=== PATIENT | female | born 1990 | race Caucasian/White ===

== ENCOUNTER 2025-06-29 11:19 | Outpatient (POV) | payer MEDICAID, SELFPAY ==
--- OUTSIDE RECORDS SUMMARY | 2025-03-14 09:45 | XMS_ITS ---
Author Organization [facility] [place] Address [facility] [place] [address] Care Team Providers Care Metaphysician Name Role Phone NBA EDEN Unavailable [phone] Chloé Martin Unavailable [phone] REASON FOR VISIT F/U Encounters Encounter Location Date Provider Diagnosis [facility] [place] [address] 03/14/2025 Chloé Martin Plan Of Treatment No Information Progress Notes * MCDOWELLGUILLERMO CuevasOB:1990 ([age] yo F)Acc No.[id number]:03/14/2025 Progress Notes Patient: ERROL ATKINS Appointment Provider: Jimmy Martin APRN, CNP :1990 A ge:34 Y S ex:Female Date:03/14/2025 Address:[address] [facility] Subjective: * Chief Complaints: * 1 . F/U. * Medical History: Objective: * Vitals: Assessment: Plan: * Treatment: * * Electronic signature of Gerry Giron APRN on 06/29/2025 at 11:25 AM EDT Sign off status: Pending * Appointment Provider: Jimmy Martin APRN, CNP Date: 03/14/2025 Generated for Printing/Faxing/eTransmitting on: 06/29/2025 11:25 AM EDT
--- OUTSIDE RECORDS SUMMARY | 2025-04-20 03:45 | XMS_ITS ---
Author Organization [facility] [place] Address [address] [place] [address] Care Team Providers Care Avionics Technician Name Role Phone TREVER EDENDahliaPEPITOJOSE F Unavailable [phone] Rupesh Parra Unavailable [phone] REASON FOR VISIT 5 WEEK Encounters Encounter Location Date Provider Diagnosis [facility] [place] [address] [place] [address] 04/20/2025 Rupesh Parra Plan Of Treatment No Information Progress Notes * GUILLERMO MCDOWELLOB:1990 ([age] yo F)Acc No.[id number]:04/20/2025 Patient: ERROL ATKINS Provider: DEEPAK Mendoza :1990 A ge:34 Y S ex:Female Date:04/20/2025 Address:[address] [facility] Subjective: * Chief Complaints: * 1 . 5 WEEK. * Medical History: Objective: * Vitals: Assessment: Plan: * Treatment: * * Electronic signature of FRANNIE Wright on 06/29/2025 at 11:25 AM EDT Sign off status: Pending * Provider: DEEPAK Mendoza Date: 04/20/2025 Generated for Josh ng/Fatuckerg/eTransmitting on: 0 06/29/2025 11:25 AM EDT
--- OUTSIDE RECORDS SUMMARY | 2025-06-29 11:25 | XMS_ITS | Encounter Summary ---
Author Organization Healthcare Address [address] [place] [address] Care Team Providers Care Air Sampler Name Role Phone Jeff Pagan MD Unavailable Pcp, No Primary Care Provider Unavailabl e Reason for Referral * Consultation (Routine) - Closed Specialty Diagnoses / Procedures Referred By Contac t Referred To Contact Spine Surgery / Neurosurgery Diagnoses Scoliosis of thoracolumbar spine, unspecified scoliosis type Javad Carney MD [address] [place] [address] Phone: tel: fax: Referral ID Status Reason Start Date Expiration Date V isits Requested Visits Authorized [id number] Closed Specialty Services Required 05/03/2024 11/02/2025 1 1 Encounter Details Date Type Department Care Team (Late st Contact Info) Description 05/03/2024 Community [facility] [address] [place] [address] Javad Carney MD [address] [place] [address] Scoliosis of thoracolumbar spine, unspecified scoliosis type (Primary Dx) Social History Tobacco Use Types Packs/Day Years Used Date Smoking Tobacco: Every Day Comments Unknown Sex and Gender Information Value Date Recorded Sex Assigned at Not on file Legal Sex Female 8:48 PM EDT Gender Identity Not on file Sexual Orientation Not on file documented as of this encounter Plan of Treatment Scheduled Referrals Name Type Priority Associated Diagnoses Orde r Schedule Ambulatory referral to Spine Surgery Outpatient Referral Routine Scoliosis of thoracolumbar spine, unspecified scoliosis type Expected: 05/03/2024 (Approximate), Expires: 11/02/2025 documented as of this encounter Visit Diagnoses Diagnosis Scoliosis of thoracolumbar spine, unspecified scoliosis type- Primary documented in this encounter Care Teams Air Sampler Relationship Specialty Start Date End Date Pcp, No [address] [place] [address] PCP - General Family Medicine 06/30/24 Jeff Pagan MD [address] [facility] [address] [place] [address] Surgeon Neurosurgery 06/30/24 documented as of this encounter
--- OUTSIDE RECORDS SUMMARY | 2025-06-29 11:25 | XMS_ITS | Encounter Summary ---
Author Organization Healthcare Address [address] [place] [address] Care Team Providers Care School Bus Technician Name Role Phone Jeff Pagan MD Unavailable [phone] Pcp, No Primary Care Provider Unavailabl e Encounter Details Date Type Department Care Team (Late st Contact Info) Description 05/04/2024 Community Orders Community Practice [address] [place] [address] Sav [place] [address] Other spontaneous disruption of medial collateral ligament of left knee (Primary Dx) Social History Tobacco Use Types Packs/Day Years Used Date Smoking Tobacco: Every Day Comments Unknown Sex and Gender Information Value Date Recorded Sex Assigned at Not on file Legal Sex Female 8:48 PM EDT Gender Identity Not on file Sexual Orientation Not on file documented as of this encounter Plan of Treatment Not on file documented as of this encounter Visit Diagnoses Diagnosis Other spontaneous disruption of medial collateral ligament of left knee- Primary documented in this encounter Care Teams School Bus Technician Relationship Specialty Start Date End Date Pcp, No [address] [place] [address] PCP - General Family Medicine 06/30/24 Jeff Pagan MD [address] [facility] [address] [place] [address] Surgeon Neurosurgery 06/30/24 documented as of this encounter
--- OUTSIDE RECORDS SUMMARY | 2025-06-29 11:25 | XMS_ITS | Patient Health Record ---
Author Organization [facility] [place] Address [address] [place] [address] Care Team Providers Care Textile Chemist Name Role Phone GORDONGRACE NBA Unavailable [phone] Rupesh Parra Unavailable [phone] Chloé Martin Unavailable [phone] Reason For Referral No Information Medications Medication SIG (Take, Route, Frequency, Duration) Notes Start Date End Date Status hydrOXYzine HCl 10 MG 1-2 tablets Orally Every 4 hours; Duration: 30 days when needed for anxiety or insomnia 03/16/2025 Active Venlafaxine HCl ER 37.5 MG 1 capsule wit h food Orally Once a day; Duration: 30 days 03/16/2025 Active Problems Problem Type SNOMED Code ICD Code Onset Dates Problem Status W/U Status Risk Notes Problem Bipolar affective disorder, currently depressed, moderate (844179413) Bipolar disorder, current episode depressed, moderate (F31.32) Active confirmed Problem Generalized anxiety disorder (72368243) Generalized anxiety disorder (F41.1) Active confirmed Problem Post-traumatic stress disorder (85029857) Post-traumatic stress disorder, unspecified (F43.10) Active confirmed Problem Scoliosis (221252906) Scoliosis, unspecified (M41.9) Active confirmed Problem Insomnia (015511579) Insomnia (G47.00) Active confirmed Problem Mixed anxiety and depressive disorder (053815150) Anxiety and depression (F41.8) Active confirmed Vital Signs Heart Rate 95 /min 03/16/2025 Temperature 98.7 degrees Fahrenheit 03/16/2025 Respiratory Rate 18 /min 03/16/2025 Oximetry 97 % 03/16/2025 Blood pressure diastolic 62 mm Hg 03/16/2025 Height 61 in 03/16/2025 Blood pressure systolic 120 mm Hg 03/16/2025 Weight 117 lbs 03/16/2025 BMI 22.1 kg/m2 03/16/2025 Encounters Encounter Location Date Provider Diagnosis [facility] [place] [address] [facility] [place] [address] 02/25/2025 Chloé Martin Scoliosis, unspecified M41.9 ; Anxiety and depression F41.8 ; Post-traumatic stress disorder, unspecified F43.10 and Low back pain, unspecified M54.50 [facility] [place] [address] [place] [address] 03/16/2025 Rupesh Parra Bipolar disorder, current episode depressed, moderate F31.32 ; Generalized anxiety disorder F41.1 and Insomnia G47.00 Assessments Encounter Date Diagnosis (ICD Code) Assessment Notes Treatment Notes Treatment Clinical Notes Section Notes 02/25/2025 Scoliosis, unspecified (ICD-10 - M41.9) Will get labs at [facility] 02/25/2025 Anxiety and depression (ICD-10 - F41.8) PT will est. care with our concession stand attendant 03/16/2025 Bipolar disorder, current episode depressed, moderate (ICD-10 - F31.32) Restarting Effexor, trialing hydroxyzine tabs PRN for anxiety or insomnia. Instructed patient to let us know name of previous prescriber office and we will request records. Discussed following up with neurologist due to periods of blacking out. Discussed benzodiazepine vs. nonbenzodiazepine treatment, risks, benefits, long-term complications and issues with use such as physical dependence, potential for addiction and abuse, disinhibition, ineffectiveness, loss of mental acuity. UDS and KANDY reviewed in patient's chart, and consistent however alprazolam not found in KANDY. Educated patient on pros, cons, benefits, risks, side effects of medication. Encouraged patient to see counselor. Discussed safety plan to call [phone] or visit ED if SI emerges. Follow-up visit in 4 weeks. Noted arrest in October 2024 for drug trafficking and possession 03/16/2025 Generalized anxiety disorder (ICD-10 - F41.1) Discussed nonpharmacologic anxiety management techniques to use as needed. 03/16/2025 Insomnia (ICD-10 - G47.00) Provided sleep hygiene education. 02/25/2025 Post-traumatic stress disorder, unspecified (ICD-10 - F43.10) 02/25/2025 Low back pain, unspecified (ICD-10 - M54.50) Plan Of Treatment No Information Insurance Providers Payer Name Payer Address Payer Phone Subscriber Number Group Number Insured Name Patient Relationship to Insured Coverage Start Date Coverage End Date [employer] [address] [address] [place] [address] [id number] ERROL MCDOWELL Self - patient is the insured
--- OUTSIDE RECORDS SUMMARY | 2025-06-29 11:26 | XMS_ITS | Encounter Summary ---
Author Organization Healthcare Address [address] [place] [address] Care Team Providers Care Capper Machine Operator Name Role Phone Jeff Pagan MD Unavailable [phone] Pcp, No Primary Care Provider Unavailabl e Encounter Details Date Type Department Care Team (Late st Contact Info) Description 04/30/2024 Community Orders Community Practice [address] [place] [address] [place] [address] Social History Tobacco Use Types Packs/Day Years Used Date Smoking Tobacco: Every Day Comments Unknown Sex and Gender Information Value Date Recorded Sex Assigned at Not on file Legal Sex Female 8:48 PM EDT Gender Identity Not on file Sexual Orientation Not on file documented as of this encounter Plan of Treatment Not on file documented as of this encounter Visit Diagnoses Not on filedocumented in this encounter Care Teams Capper Machine Operator Relationship Specialty Start Date End Date Pcp, No [address] [place] [address] PCP - General Family Medicine 06/30/24 Jeff Pagan MD [address] [place] [address] Surgeon Neurosurgery 06/30/24 documented as of this encounter
--- OUTSIDE RECORDS SUMMARY | 2025-06-29 11:26 | XMS_ITS | Encounter Summary ---
Author Organization [place] [address] Care Team Providers Care Network Technology Instructor Name Role Phone Unavailable Primary Care Provider Unavailabl e Encounter Details Date Type Department Care Team (Late st Contact Info) Description 05/19/2025 External Contact [facility] [address] [place] [address] Chani Britt, ABBY [address] [facility] [place] [address] Chronic hepatitis C without hepatic coma (HCC) (Primary Dx); Edentulous; Polysubstance abuse (HCC) Social History Tobacco Use Types Packs/Day Years Used Date Smoking Tobacco: Never Assessed Comments Unknown Sex and Gender Information Value Date Recorded Sex Assigned at Not on file Legal Sex Female 12:33 PM EDT Gender Identity Not on file Sexual Orientation Not on file documented as of this encounter Progress Notes * Chani Britt APRN - 05/19/2025 10:27 PM EDT Images from the original note were not included. Medical Progress Note Patient Name: Lory Castellanos 34 y.o. female Consulting Provider: Chani Britt APRN Date of Service: 05/19/25 Reason for consultation: Hepatitis C HPI: Lory Castellanos is a 34 y.o. female with a PMH of methamphetamine dependence and hepatitis C who isbeing seen in follow-up on patient [facility]. Patient found resting in bed this morning. Denies all current medical complaints. Lab work discussed. Looks forward to discharge later today. ALLERGIES: No Known Allergies HOME MEDS: Prior to Admission medications Not on File Have there been any changes to the Review of Systems? If yes indicate below.: No Constitutional: No Complaints Temperature: ?? F 98.6 Pulse: B/min 90 Blood Pressure: Systolic (mmHg) 133, Diastolic (mmHg) 88 Respirations: Per Minute 16 BMI: BMI: 22.1 Objective VS/physical exam: General: no acute distress CV: regular rate Lungs: non-labored Neurological: alert, oriented, cooperative Labs/Radiology/Procedures: All pertinent laboratory studies and imaging were reviewed 05/17/2025 04:00 PM BUN 8 mg/dL 05/17/2025 04:00 PM Lymphs 25 % 05/17/2025 04:00 PM Neutrophils (Absolute) 5.0 x10E3/uL 05/17/2025 04:00 PM Sodium 138 mmol/L 05/17/2025 04:00 PM Hematocrit 43.8 % 05/17/2025 04:00 PM AST (SGOT) 12 IU/L 05/17/2025 04:00 PM Triglycerides 61 mg/dL 05/17/2025 04:00 PM Basos 1 % 05/17/2025 04:00 PM Lymphs (Absolute) 1.8 x10E3/uL 05/17/2025 04:00 PM Bilirubin, Total 0.4 mg/dL 05/17/2025 04:00 PM Protein, Total 6.9 g/dL 05/17/2025 04:00 PM WBC 7.4 x10E3/uL 05/17/2025 04:00 PM eGFR 110 mL/min/1.73 05/17/2025 04:00 PM Cholesterol, Total 188 mg/dL 05/17/2025 04:00 PM RDW 12.1 % 05/17/2025 04:00 PM Glucose 78 mg/dL 05/17/2025 04:00 PM Neutrophils 67 % 05/17/2025 04:00 PM Eos 2 % 05/17/2025 04:00 PM HIV Ab/p24 Ag Screen Non Reactive 05/17/2025 04:00 PM Platelets 299 x10E3/uL 05/17/2025 04:00 PM Hemoglobin A1c 5.3 % 05/17/2025 04:00 PM ALT (SGPT) 6 IU/L 05/17/2025 04:00 PM MCV 95 fL 05/17/2025 04:00 PM HDL Cholesterol 48 mg/dL 05/17/2025 04:00 PM LDL Chol Calc (NIH) 129 mg/dL 05/17/2025 04:00 PM Immature Granulocytes 0 % 05/17/2025 04:00 PM Monocytes 5 % 05/17/2025 04:00 PM Eos (Absolute) 0.2 x10E3/uL 05/17/2025 04:00 PM MCH 30.5 pg 05/17/2025 04:00 PM Albumin 4.6 g/dL 05/17/2025 04:00 PM Carbon Dioxide, Total 18 mmol/L 05/17/2025 04:00 PM Hemoglobin 14.1 g/dL 05/17/2025 04:00 PM Globulin, Total 2.3 g/dL 05/17/2025 04:00 PM Monocytes(Absolute) 0.4 x10E3/uL 05/17/2025 04:00 PM BUN/Creatinine Ratio 11 05/17/2025 04:00 PM Baso (Absolute) 0.1 x10E3/uL 05/17/2025 04:00 PM Immature Grans (Abs) 0.0 x10E3/uL 05/17/2025 04:00 PM Creatinine 0.74 mg/dL 05/17/2025 04:00 PM Chloride 105 mmol/L 05/17/2025 04:00 PM T4,Free(Direct) 1.39 ng/dL 05/17/2025 04:00 PM Alkaline Phosphatase 82 IU/L 05/17/2025 04:00 PM TSH 0.911 uIU/mL 05/17/2025 04:00 PM RBC 4.62 x10E6/uL 05/17/2025 04:00 PM Potassium 4.0 mmol/L 05/17/2025 04:00 PM VLDL Cholesterol Mina 11 mg/dL 05/17/2025 04:00 PM Calcium 9.1 mg/dL 05/17/2025 04:00 PM MCHC 32.2 g/dL Assessment and Plan: Diagnoses and all orders for this visit: Chronic hepatitis C without hepatic coma (HCC) - CMP with normal LFTs -Follow-up with PCP/gastroenterology Edentulous - Declines mechanical soft diet - Has dentures at bedside Polysubstance abuse (HCC) - HIV nonreactive -Counseled on high risk behavior and transmission of blood born illness -Mitigation strategies discussed such as needle exchange Documentation was completed in both [employer] and also in the additional EMR system used at [facility]. Electronically Signed: Chani Britt APRN 05/19/2025 This chart was completed using voice recognition technology and may contain unintended errors. documented in this encounter Plan of Treatment Not on file documented as of this encounter Visit Diagnoses Diagnosis Chronic hepatitis C without hepatic coma (HCC)- Primary Edentulous Anodontia Polysubstance abuse (HCC) Other, mixed, or unspecified nondependent drug abuse, unspecified documented in this encounter
--- OUTSIDE RECORDS SUMMARY | 2025-06-29 11:26 | XMS_ITS | Encounter Summary ---
Author Organization Healthcare Address [address] [place] [address] Care Team Providers Care Electrical Maintenance Worker Name Role Phone Jeff Pagan MD Unavailable [phone] Pcp, No Primary Care Provider Unavailabl e Encounter Details Date Type Department Care Team (Late st Contact Info) Description 04/30/2024 Community Orders Community Practice [address] [place] [address] Meg Quinonez PA [address] [place] [address] Social History Tobacco Use Types Packs/Day Years [...] on filedocumented in this encounter Care Teams Electrical Maintenance Worker Relationship Specialty Start Date End Date Pcp, No [address] [place] [address] PCP - General Family Medicine 06/30/24 Jeff Pagan MD [address] [place] [address] Surgeon Neurosurgery 06/30/24 documented as of this encounter
--- OUTSIDE RECORDS SUMMARY | 2025-06-29 11:26 | XMS_ITS | Encounter Summary ---
Author Organization [place] [address] Care Team Providers Care Induction Brazer Name Role Phone Unavailable Primary Care Provider Unavailabl e Encounter Details Date Type Department Care Team (Late st Contact Info) Description 05/17/2025 External Contact [facility] [address] [place] [address] Chani Britt APRN [address] [facility] [place] [address] Medical clearance for psychiatric admission (Primary Dx); Polysubstance abuse (HCC); Chronic hepatitis C without hepatic coma (HCC); Edentulous; Tobacco abuse Social History Tobacco Use Types Packs/Day Years Used Date Smoking Tobacco: Never Assessed Comments Unknown Sex and Gender Information Value Date Recorded Sex Assigned at Not on file Legal Sex Female 12:33 PM EDT Gender Identity Not on file Sexual Orientation Not on file documented as of this encounter H&P Notes * Chani Britt APRN - 05/17/2025 12:33 PM EDT Images from the original note were not included. History and Physical Examination / Medical Clearance Consultation Patient Name: Lory Castellanos 34 y.o. female Consulting Provider: Chani Britt APRN Admit Date: 05/16/2025 Consultation requested by: Dr. Stephane Aguilar Chief complaint: Hernandez Murphy wanted me to come in detox from Xanax HPI: Lory Castellanos is a 34 y.o. female with a PMH of benzodiazepine use who presents to [facility] for assistance with ongoing Xanax use. This is the patient's first encounter in the [facility] charting system. Tells me she lives in [facility]). Tells me that she was enrolled in the [facility] at long-term treatment and they have sent her here for detox from Xanax prior to doing there 28-60-day rehab program. Patient reports she had been using Xanax daily. Tells me her last use was 05/13/2025. She denies use of alcohol and other illicit drugs however her urine drug screen is positive for THC and methamphetamines along with benzodiazepines. Patient reports she has also been diagnosed with hepatitis C in reports it has been treated in 2018 with Mavyret. She deniescurrent GI distress. Tells me her appetite and sleep are unaffected. Looks forward to the long-termtreatment. Past medical history: History reviewed. No pertinent past medical history. Surgical History: History reviewed. No pertinent surgical history. Family History: History reviewed. No pertinent family history. Allergies: No Known Allergies Current Medications: No current outpatient medications on file. No current facility-administered medications for this visit. Social History: Current Medications: Acetaminophen (Tylenol) 325 MG, 650 mg by mouth Every Six Hours PRN *Do not exceed 3,000mg in 24 hours* *For Pain Score 1-5* Indication: pain Albuterol Sulfate (Ventolin) 90 MCG, 2 puff(s) via device Every Six Hours PRN HOLD for SBP>180 or DBP>100 or HR>120 Indication: bronchospasm prevention Calcium 200mg Elemental (Tums 500mg (200mg ELEMENTAL)) 200 mg by mouth Every Four Hours PRN Indication: dyspepsia hydrALAZINE HCl (Apresoline) 25 MG, 25 mg by mouth Every Six Hours PRN Give for SBP>160 or DBP>95 HOLD for Blood Pressure <90/60 or HR<60 Indication: hypertension hydrOXYzine Pamoate (Vistaril) 25 MG, 50 mg by mouth Every Six Hours PRN Indication: anxiety Ibuprofen (Motrin) 200 MG, 400 mg by mouth Every Six Hours PRN *For Pain Score 6-10* Indication: pain OLANZapine (ZyPREXA ODT) 5 mg by mouth Every Four Hours PRN *Do not exceed 30mg in 24 hours* Indication: agitation Ondansetron HCl (Zofran ODT) 4 mg by mouth Every Four Hours PRN Indication: nausea and vomiting traZODone HCl (Desyrel) 50 mg by mouth at Bedtime PRN Indication: insomnia Social History: Has and 2 children. Currently unemployed. Living in long-term treatment Lab/Radiology Results: None Lab/Radiology Orders: CBC w/ diff with next lab draw, Request Type: Routine, Specimen: Blood Comprehensive Metabolic Panel with next lab draw, Request Type: Routine, Specimen: Blood Free T4 with next lab draw, Request Type: Routine, Specimen: Blood HCV Ab w/Rflx to Quant. RT-PCR One Time Only, Request Type: Now, Specimen: Blood Hemoglobin A1C with next lab draw, Request Type: Routine, Specimen: Blood HIV Ag/Ab w/Reflex-Qualitative One Time Only, Request Type: Now, Specimen: Blood Lipid Panel with next lab draw, Request Type: Routine, Specimen: Blood Thyroid Level (TSH) with next lab draw, Request Type: Routine, Specimen: Blood Review of Systems Constitutional: Fatigue Eyes: No Complaints Ears/Nose/Mouth/Throat: No Complaints Cardiovascular: No Complaints Respiratory: No Complaints Gastrointestinal: No Complaints Genitourinary: No Complaints Musculoskeletal: No Complaints Skin: No Complaints Neurological: No Complaints Endocrine: No Complaints Psychiatric: Other: Substance abuse Hematologic/Lymphatic: No Complaints Allergic/Immunologic: No Complaints Physical Exam Temperature: ?? F 98.1 Pulse: B/min 85 Blood Pressure: Systolic (mmHg) 96, Diastolic (mmHg) 65 Respirations: Per Minute 16 BMI: BMI: 22.1 Constitutional: Positive: NAD, resting in bed Eyes: Negative Ears/Nose/Mouth/Throat: Positive: Edentulous Cardiovascular: Negative Respiratory: Negative Gastrointestinal: Negative Genitourinary: Positive: Deferred Musculoskeletal: Negative Skin: Negative Neurologic: Negative Psychiatric: Positive: Alert and oriented Hematologic/Lymphatic/Immunologic: Negative Cranial Nerves/Reflexes/Motor Functioning Optic II Distinguishes number of fingers in central field. Distinguishes movement in peripheral vision. : Yes Oculomotor III, Trochlear IV, Abducens Gazes symmetrically up, down, sideways.: Yes Trigeminal V Distinguishes 1 from 2 point touch symmetrically on forehead, cheeks and chin, chews symmetrically.: Yes Facial VII Upper: Frowns symmetrically. Lower: Smiles symmetrically. Yes Auditory VIII Hears finger rubbing or snapping equally in both ears.: Yes Glossopharyngeal IX Has gag reflex. : Yes Vagus X Can make guttural sounds.: Yes Accessory XI Shrugs shoulder symmetrically. Resists turning of head symmetrically.: Yes Hypoglossal XII Can stick out tongue straight. No atrophy or fasciculations.: Yes Reflexes: Normal Motor Tremor: None Physical Activity Recommendations: After completing a history and physical examination of this patient, do you recommend a consultation with a physical therapist on an outpatient basis? No physical therapy consult recommended Current/Past Substance Use Current/Past Substance Use: Patient currently uses substances and/or alcohol Tobacco Use Screening Cigarettes: > then 1/2 pack (>10) per day, Other Frequency: Daily use Labs/Radiology/Procedures: All pertinent laboratory studies and imaging were reviewed Assessment/Plan: Diagnoses and all orders for this visit: Medical clearance for psychiatric admission -Cleared for admission for psychiatric treatment -CBC w/differential, CMP, TSH, urine drug screen ordered or labs reviewed from outside facility -Follow-up with PCP post discharge Polysubstance abuse (HCC) - Urine drug screen positive for THC, benzodiazepines, and methamphetamines -HIV screening ordered Chronic hepatitis C without hepatic coma (HCC) -Encourage follow-up with PCP she may need GI referral. She should have a complete liver assessmentand evaluation, including quantitative viral hepatitis C testing with reflex genotyping to determine if antiviral therapy is warranted - CMP ordered to monitor liver profile -Patient reports treatment with Mavyret in 2018 Edentulous - Declines mechanical soft diet -Has dentures at bedside, needs adhesive gel -Dietitian consulted -Declines mechanical soft diet Tobacco abuse -Tobacco cessation product offered. -Continue to togiak patient on the risks associated with tobacco use and urge cessation Consults/Follow-ups: PCP I conclude that this patient is medically stable for inpatient psychiatric care.: Yes Documentation was completed in both [employer] and also in the additional EMR system used at [facility]. Electronically Signed: Chani Britt APRN 05/17/2025 12:34 PM This chart was completed using voice recognition technology and may contain unintended errors. documented in this encounter Plan of Treatment Not on file documented as of this encounter Visit Diagnoses Diagnosis Medical clearance for psychiatric admission- Primary Polysubstance abuse (HCC) Other, mixed, or unspecified nondependent drug abuse, unspecified Chronic hepatitis C without hepatic coma (HCC) Edentulous Anodontia Tobacco abuse Tobacco use disorder documented in this encounter
--- OUTSIDE RECORDS SUMMARY | 2025-06-29 11:26 | XMS_ITS | Clinical Summary ---
Author Organization [facility] Address [address] [place] [address] Phone Care Team Providers Care News Library Director Name Role Phone Unavailable Primary Care Provider Unavailabl e Allergies No known active allergies Medications * This document contains information received from the source organization and may not represent a complete record from that organization. No known medications Active Problems No known active problems Encounters * This document contains information received from the source organization and may not represent a complete record from that organization. Date Type Department Care Team Description 05/19/2025 External Contact [facility] [place] [address] Chani Britt APRN Chronic hepatitis C without hepatic coma (HCC) (Primary Dx); Edentulous; Polysubstance abuse (HCC) 05/17/2025 External Contact [facility] [place] [address] [place] [address] Chani Britt APRN Medical clearance for psychiatric admission (Primary Dx); Polysubstance abuse (HCC); Chronic hepatitis C without hepatic coma (HCC); Edentulous; Tobacco abuse from Last 3 Months Social History Tobacco Use Types Packs/Day Years Used Date Smoking Tobacco: Never Assessed Comments Unknown Sex and Gender Information Value Date Recorded Sex Assigned at Not on file Legal Sex Female 12:33 PM EDT Gender Identity Not on file Sexual Orientation Not on file Obstetrics History Plan of Treatment Health Maintenance Due Date Last Done Comments Annual Wellness Exam 1995 DTaP/TDaP/Td (1 - Tdap) 2011 Hepatitis B Vaccine (1 of 3 - 19+ 3-dose series) 2011 Cervical Cancer Screening 2013 Pap Smear 2013 HPV/Pap Cotest 2022 COVID-19 Vaccine (2023-2 5 season) 2024 Influenza Vaccine (#1) 2025 Meningococcal B Vaccine Aged Out No l onger eligible based on patient's age to complete this topic Pneumococcal Vaccine 0-49 Aged Out No longer eligible based on patient's age to complete this topic Insurance [employer] [address]
--- OUTSIDE RECORDS SUMMARY | 2025-06-29 11:26 | XMS_ITS | Encounter Summary ---
Author Organization Healthcare Address [address] [place] [address] Care Team Providers Care Stud Dairy Cattle Farmer Name Role Phone Jeff Pagan MD Unavailable Pcp, No Primary Care Provider Unavailabl e Encounter Details Date Type Department Care Team (Late st Contact Info) Description 04/29/2024 Community [facility] Community Practice [address] [place] [address] Javad Carney MD [facility] [employer] [place] [phone] Acquired scoliosis (Primary Dx) Social History Tobacco Use Types [...] as of this encounter Visit Diagnoses Diagnosis Acquired scoliosis- Primary Scoliosis (and kyphoscoliosis), idiopathic documented in this encounter Care Teams Stud Dairy Cattle Farmer Relationship Specialty Start Date End Date Pcp, No [address] [place] [address] PCP - General Family Medicine 06/30/24 Jeff Pagan MD [address] [place] [address] Surgeon Neurosurgery 06/30/24 documented as of this encounter
--- OUTSIDE RECORDS SUMMARY | 2025-06-29 11:26 | XMS_ITS | Clinical Summary ---
Author Organization Healthcare Address [address] [place] [address] Care Team Providers Care Art Framing Manager Name Role Phone Jeff Pagan MD Unavailable [phone] Pcp, No Primary Care Provider Unavailabl e Allergies No known active allergies Medications ALPRAZolam (Xanax) 0.5 MG tablet 04/13/2019 Active Vitamin D3 25 MCG (1000 UT) capsule 12/04/2023 Active gabapentin (Neurontin) 400 MG capsule TAKE 1 CAPSULE 4 TIMES EACH DAY 05/31/2024 Active HYDROcodone-chacho taminophen (Bristol) 5-325 MG tablet TAKE 1 TABLET 3 TIMES EACH DAY 05/31/2024 Active ondansetron (Zofran) 4 MG tablet 06/25/2024 Active venlafaxine (Effexor) 25 MG tablet 12/04/2023 Active Active Problems Problem Noted Date Diagnosed Date Scoliosis 07/01/2024 Chronic thoracic back pain 07/01/2024 Family History Medical History Relation Name Comments Conversions - Other Other Patient denies medical problems Relation Name Status Comments Other Social History Tobacco Use Types Packs/Day Years Used Date Smoking Tobacco: Every Day Cigarettes Smokeless Tobacco: Never Tobacco Cessation:Ready to Q uit: Not Asked; Counseling Given: Not Answered Alcohol Use Standard Drinks/Week Comments Never 0 (1 standard drink = 0.6 oz pur e alcohol) Comments Unknown Sex and Gender Information Value Date Recorded Sex Assigned at Not on file Legal Sex Female 8:48 PM EDT Gender Identity Not on file Sexual Orientation Not on file Last Filed Vital Signs Vital Sign Reading Time Taken Comments Blood Pressure 107/76 06/30/2024 10:53 AM EDT Pulse 66 04/13/2019 2:31 PM EDT Temperature - - Respiratory Rate - - Oxygen Saturation - - Inhaled Oxygen Concentration - - Weight 49.4 kg (109 lb) 06/30/2024 10:53 AM EDT Height 152.4 cm (5') 06/30/2024 10:53 AM EDT Body Mass Index 21.29 06/30/2024 10:53 AM EDT Plan of Treatment Health Maintenance Due Date Last Done Comments [facility]-Depression Screening 1992 [facility]-HIV Screening 1992 [facility]-Hepatitis C Screening 1992 [facility]-Infant/Child/Adol SDOH Screenings 1992 [facility]-Varicella Vaccines (1 of 2 - 13+ 2-dose series) 2005 [facility]- SDOH Screenings 2010 [facility]-Adult SDOH Screenings 2010 [facility]-DTaP,Tdap,and Td Vaccine s (1 - Tdap) 2011 [facility]-Pneumococcal Vaccine: Pediatrics (0 to 5 Years) and At-Risk Patients (6 to 49 Years) (1 of 2 - PCV) 2011 [facility]-Pap Smear 2013 HPV Vaccines (1 - 3-dose SCD M series) 2019 [facility]-Hepatitis B Vaccines (2 of 3 - 19+ 3-dose series) 01/16/2022 12/19/2021 [facility]-Cervical Cancer Screening 2022 [facility]-HPV/Cotest 2022 [id number] Vaccine (1 - 20 24-25 season) 2024 [facility]-Influenza Vaccine (#1) 2025 [facility]-Zoster Vaccines (1 of 2) 2042 [facility]-Hepatitis A Vaccines Aged Out 12/19/2021 No longer eligible based on patient's age to complete this topic [facility]-HIB Vaccines Aged Out No longer e ligible based on patient's age to complete this topic [facility]-IPV Vaccines Aged Out No longer e ligible based on patient's age to complete this topic [facility]-Rotavirus Vaccines Aged Out No lo nger eligible based on patient's age to complete this topic Insurance [facility] MEDICAID [place] Care Teams Art Framing Manager Relationship Specialty Start Date End Date Pcp, Juliana [address] [place] [address] PCP - General Family Medicine 06/30/24 Jeff Pagan MD [address] [place] [address] Surgeon Neurosurgery 06/30/24
--- OUTSIDE RECORDS SUMMARY | 2025-06-29 11:26 | XMS_ITS | Encounter Summary ---
Author Organization Healthcare Address [address] [place] [address] Care Team Providers Care Anthropological Linguist Name Role Phone Jeff Pagan MD Unavailable [phone] Pcp, No Primary Care Provider Unavailabl e Encounter Details Date Type Department Care Team (Late st Contact Info) Description 04/30/2024 Community Orders Community Practice [address] [place] [address] Salomón Orta MD [address] [facility] [address] [place] [address] Social History Tobacco Use Types Packs/Day Years [...] on filedocumented in this encounter Care Teams Anthropological Linguist Relationship Specialty Start Date End Date Pcp, No [address] [place] [address] PCP - General Family Medicine 06/30/24 Jeff Pagan MD [address] [facility] [address] [place] [address] Surgeon Neurosurgery 06/30/24 documented as of this encounter
--- NOTE | 2025-06-29 11:53 | EXP.PAIN.OV ---
HPI Data of Consult Patient: known to practice within the last 3 years Consult date: 06/29/25 Requesting Physician: Bridgett Leon APRN Primary Care Provider: Referral Provider, MD Reason for consult: Chronic back pain History of present illness: Ms. Castellanos is a 34 year old female who presents today as a new patient however she has been seeing our [place] location for about a year and a half. She rates her pain today a 7 out of 10. Patient denies any changes from when we did see her at that location. She states it is still that chronic low back pain related to her scoliosis and progressively worsens on a daily basis. Patient was being prescribed medication with gabapentin and [place]adox at that location however has not had any refills of it since around the end of the year. Patient did try physical therapy and that made her pain worse. Patient is interested in any options we may be able to provide. Patient does have questions regarding the possibility of being on the gabapentin. Her Yariel has been reviewed. She is prescribed compounded cream. Pain at rest (0-10 scale): 7 Has patient had previous pain injection?: No Conservative treatment options previously tried: Home exercise plan (Longer than 12 weeks) and Physical Therapy (Made worse) cc:: CC: Bridgett Leon APRN [facility] Disclaimer: The information contained in this section may have been updated after the patient was seen, as this information can be updated by other users. Medical History (Updated 06/29/25 @ 11:55 by Bridgett Leon APRN) Scoliosis Migraines Restless leg syndrome Back pain Depression Anxiety Surgical History No history of previous surgery Social History Smoking Status: Current every day smoker alcohol intake: never substance use type: denies use current occupational status: unemployed Travel in the last 8 weeks?: None housing: house Have you lived/traveled outside US in past 30 days?: No Contact w/someone who lives/traveled outside US past 30 days?: No Exposure to someone with infectious disease in past 14 days?: No Do you have a fever (greater than 100.4 F or 38 C)?: No Have you tested positive for COVID-19?: No Exposed to someone with COVID-19 in past 14 days?: No Do you have a sore throat?: No Do you have a cough?: No Do you have any weakness?: No Do you have any diarrhea?: No Are you experiencing any unusual bleeding?: No Do you have any muscle aches/pain?: No Do you have any abdominal pain?: No Are you experiencing loss of taste or smell?: No Review of Systems Review of Systems Review of systems:: pertinent systems reviewed and negative unless documented below Review of systems (narrative): Review of Systems: General: No recent weight changes, no fever, no sleep disturbances Respiratory: No cough, no shortness of air, no recurring pulmonary infections Cardiovascular/peripheral vascular: No chest pain, no palpitations, no edema, no shortness of breath Gastrointestinal: No new onset incontinence, normal bowel movements reported Genitourinary: No new onset incontinence Musculoskeletal: Chronic back pain Psychiatric: [Normal mood/affect] Neurological: [Denies weakness in extremities], [denies balance issues] Meds Home Medications and Allergies Home Medications ?Medication ?Instructions ?Recorded ?Confirmed ?Type cholecalciferol (vitamin D3) 125 125 mcg PO DAILY #30 caps 07/07/24 07/07/24 Rx mcg (5,000 unit) capsule gabapentin 400 mg capsule 400 mg PO QID 07/07/24 07/07/24 History hydrocodone 5 mg-acetaminophen 325 1 tab PO TID 07/07/24 07/07/24 History mg tablet ondansetron HCl 4 mg tablet 4 mg PO TID PRN 07/07/24 07/07/24 History venlafaxine 75 mg capsule,extended 75 mg PO DAILY #30 caps 07/07/24 07/07/24 Rx release 24 hr (Effexor XR) New Prescriptions to Start Prescriptions: Allergies Allergy/AdvReac Type Severity Reaction Status Date / Time diazepam Allergy upset Verified 07/07/24 13:19 stomach, rash Objective Narrative: Physical Exam: General: Alert and oriented x3, no acute distress, pleasant and cooperative Lungs: Respirations even and unlabored, symmetrical chest expansion Eyes: PERRL Musculoskeletal: Flexion and extension of lumbar [spine] somewhat guarded secondary to pain, [antalgic gait noted] Neurological: Speech clear, no gross sensory deficit Assessment and Plan *Assessment and plan (1) Back pain: Status: Chronic Qualifiers: Back pain location: low back pain Chronicity: chronic Back pain laterality: midline Sciatica presence: without sciatica Qualified Code(s): M54.5 - Low back pain; G89.29 - Other chronic pain Category: Medical Code(s): M54.9 - Dorsalgia, unspecified (2) Scoliosis: Status: Acute Category: Medical Code(s): M41.9 - Scoliosis, unspecified Plan I did discuss with the patient due to her recent drug screen that did show a positive methamphetamine finding that unfortunately we cannot prescribe any scheduled medications. We will continue to do the compounded cream as a topical and she was counseled that we can always do injections if she would like to. I we will send in a 2-week dose of Celebrex 200 mg daily. Patient was counseled to discontinue all other NSAIDs while taking this medication and to take with food to minimize GI upset. Patient denies any heart or kidney issues. She will return to clinic in 1 month for reevaluation of symptoms and plan of care. Patient has been instructed to contact the clinic with any concerns before the next appointment. Dr. Medina has reviewed this note and agrees with this plan of care. This note was dictated using voice recognition software and make contain errors or omissions. All injections are used with Lidocaine, Bupivacaine and dexamethasone. Occasionally urine drug screen is needed to verify patient's compliance with our office pain contract. This is ordered based off specific treatments related to chronic pain with the potential to abuse certain medications.
[2025-06-29 12:23] VITALS: BP 123/85; PULSE 84; RESP 18; O2SAT 98; BMI 24.0
== END 2025-06-29 23:59 | disposition home or self-care (01) ==
LOC: SC.PAIN 11:19
PROVIDERS: Visit Provider Nurse Practitioner Family
DX: M41.9 Scoliosis, unspecified (principal); G89.29 Other chronic pain; Z79.899 Other long term (current) drug therapy; Z79.891 Long term (current) use of opiate analgesic; M54.50 Low back pain, unspecified
CPT/HCPCS: 99202; G0463